=== PATIENT | female | born 1980 | race Hispanic/Latino ===

== ENCOUNTER 2017-05-26 11:16 | Emergency (ER) | payer SELFPAY ==
[2017-05-26 11:36] VITALS: TEMP 97.8
--- NOTE | 2017-05-26 12:26 | RAD ---
Study: Frontal and Lateral Views of the Chest. Indication: right breast pain and diaphoresis 4 days Comparison: April 02, 2014. IMPRESSION: Heart size normal. Lungs clear. No acute osseous abnormality. Electronically signed by: Yazan Chris MD 05/26/2017 12:25 PM CDT
[2017-05-26] MEDS ORDERED: cefTRIAXone SODIUM 1 GM VIAL IM ONE (12:41)
--- NOTE | 2017-05-26 12:44 | ED.PDOC ---
History of Present Illness - General Chief Complaint: General Stated Complaint: left breast pain Time Seen by Provider: 05/26/17 11:23 Source: patient Exam Limitations: no limitations - History of Present Illness Initial Comments: the patient is a 36-year-old female presenting to the emergency room secondary to 4 days of symptoms. Her primary symptom is pain in her left breast behind the nipple. No nipple discharge. No shortness of breath. No syncope or near syncope. She does report intermittent diaphoresis for the last few days. No cough. She has had some mild nausea when she got diaphoretic. No new medications. She has breast-fed in the past but is not currently breast- feeding. Severity: moderate Improving Factors: nothing Worsening Factors: nothing Associated Symptoms: chest pain, diaphoresis, loss of appetite Allergies/Adverse Reactions: Allergies NO KNOWN ALLERGY Allergy (Verified 05/26/17 11:36) Home Medications: Ambulatory Orders Metformin HCl 500 mg PO BID 01/29/13 Glyburide 2.5 mg PO DAILY 01/31/15 Lisinopril 5 mg PO DAILY 01/31/15 Meclizine HCl 25 mg PO Q6HR #60 tab 02/29/16 Cephalexin Monohydrate [Keflex] 500 mg PO Q8H #30 cap 05/26/17 Sulfa/Trimeth 800/160 (Ds) Tab [Bactrim DS Tab] 1 ea PO BID #20 tab 05/26/17 Review of Systems - Review of Systems Constitutional: States: diaphoresis, malaise EENTM: States: no symptoms reported Respiratory: States: no symptoms reported Cardiology: States: chest pain Gastrointestinal/Abdominal: States: no symptoms reported Genitourinary: States: no symptoms reported Musculoskeletal: States: no symptoms reported Skin: States: no symptoms reported Neurological: States: no symptoms reported Endocrine: States: no symptoms reported All other Systems: No Change from Baseline Past Medical History (General) - Patient Medical History Hx Seizures: No Hx Stroke: No Hx Dementia: No Hx Asthma: No Hx of COPD: No Hx Cardiac Disorders: No Hx Congestive Heart Failure: No Hx Pacemaker: No Hx Hypertension: Yes Hx Thyroid Disease: No Hx Diabetes: Yes - just diagnosed in December Hx Gastroesophageal Reflux: Yes Hx Renal Disease: No Hx Cancer: No Hx of HIV: No Hx Hepatitis C: No Hx MRSA: No Surgical History: cholecystectomy, Hysterectomy - Vaccination History Hx Tetanus, Diphtheria Vaccination: No Hx Influenza Vaccination: No Hx Pneumococcal Vaccination: No - Social History Hx Tobacco Use: No Hx Alcohol Use: Yes - occ Hx Substance Use: No Hx Substance Use Treatment: No Hx Depression: No - Activities of Daily Living Hospice Agency (if applicable):: None - Female History Patient is a Female of Child Bearing Age (10 -59 yrs old): No Patient : No Family Medical History - Family History Mother Family History: No Known Living Status: Still Living Hx Family Hypertension: Yes Hx Family Diabetes: Yes Physical Exam - Physical Exam General Appearance: Alert, Comfortable, No apparent distress Eye Exam: bilateral normal Ears, Nose, Throat: hearing grossly normal, normal ENT inspection, normal pharynx Neck: non-tender, full range of motion, supple Respiratory: lungs clear, normal breath sounds, no respiratory distress, no accessory muscle use Cardiovascular/Chest: normal peripheral pulses, regular rate, rhythm, no edema Peripheral Pulses: radial,right: 2+, radial,left: 2+, dorsalis pedis,right: 2+, dorsalis pedis,left: 2+ Gastrointestinal/Abdominal: soft Rectal Exam: deferred Back Exam: normal inspection, no CVA tenderness Extremity: normal range of motion, non-tender, normal inspection, no pedal edema , normal capillary refill 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 Breast exam shows tenderness to palpation of the tissue behind the left areola. There is no tenting of the skin. There is no abnormal discharge from the nipple. I do not feel significant lymphadenopathy in the left axilla. There is an area of inflammation behind the left areola. It is significantly tender to palpation. Clinically this in its time frame is consistent with a mastitis. The patient will be placed on Bactrim and Keflex for now. If she is not improving over the next week then additional imaging in the form of an ultrasound and possibly blood work may be needed. Her mother was recently diagnosed with breast cancer and the patient is concerned for that. For now the clinical history is more consistent with an acute mastitis. She does need to follow up with her primary care doctor next week. - Results/Orders Results/Orders: hest x-ray appears clear Departure - Departure Clinical Impression: Mastitis in female Disposition: Discharge to Home or Self Care Condition: Fair Departure Forms: ED Discharge - Pt. Copy, Patient Portal Self Enrollment Instructions: DI for Mastitis Diet: regular diet Activity: increase activity as tolerated Referrals: Maureen Shaw NP [Primary Care Provider] - 1-5 Days Prescriptions: Cephalexin Monohydrate [Keflex] 500 mg PO Q8H #30 cap Sulfa/Trimeth 800/160 (Ds) Tab [Bactrim DS Tab] 1 ea PO BID #20 tab Home Medications: Ambulatory Orders Metformin HCl 500 mg PO BID 01/29/13 Glyburide 2.5 mg PO DAILY 01/31/15 Lisinopril 5 mg PO DAILY 01/31/15 Meclizine HCl 25 mg PO Q6HR #60 tab 02/29/16 Cephalexin Monohydrate [Keflex] 500 mg PO Q8H #30 cap 05/26/17 Sulfa/Trimeth 800/160 (Ds) Tab [Bactrim DS Tab] 1 ea PO BID #20 tab 05/26/17 Additional Instructions: the patient is a 36-year-old female presented to emergency room secondary to left breast pain. Breast exam shows tenderness to palpation of the tissue behind the left areola. There is no tenting of the skin. There is no abnormal discharge from the nipple. I do not feel significant lymphadenopathy in the left axilla. There is an area of inflammation behind the left areola. It is significantly tender to palpation. Clinically this in its time frame is consistent with a mastitis. The patient will be placed on Bactrim and Keflex for now. If she is not improving over the next week then additional imaging in the form of an ultrasound and possibly blood work may be needed. Her mother was recently diagnosed with breast cancer and the patient is concerned for that. For now the clinical history is more consistent with an acute mastitis. She does need to follow up with her primary care doctor next week.
[2017-05-26] MEDS ORDERED: LIDOCAINE 1% 10 ML VIAL INJ ONE (12:53)
[2017-05-26 13:31] VITALS: BP 120/81; O2SAT 95
== END 2017-05-26 13:25 | disposition home or self-care (01) ==
LOC: ER 11:16
DX: N61.0 Mastitis without abscess (principal); I10 Essential (primary) hypertension; E11.9 Type 2 diabetes mellitus without complications; K21.9 Gastro-esophageal reflux disease without esophagitis; Z79.899 Other long term (current) drug therapy
CPT/HCPCS: 71020; J0696

== ENCOUNTER 2018-04-27 10:42 | Emergency (ER) | payer SELFPAY ==
[2018-04-27 10:53] VITALS: TEMP 99
--- NOTE | 2018-04-27 11:15 | ED.PDOC ---
History of Present Illness - General Chief Complaint: Diabetic Complaint Stated Complaint: Elevated blood sugar Time Seen by Provider: 04/27/18 10:56 Source: patient, RN notes reviewed, Vital Signs reviewed Exam Limitations: no limitations - History of Present Illness Initial Comments: Says she has been feeling poorly for quite some time. Nothing specific. She took her blood sugar today & the meter read high. She has been off her metformin for 4 months. She had a headache & vomiting 4 days ago but that has resolved. She reports some mild SP cramping but no dysuria. She says her back is sore. Timing/Duration: unsure Severity: mild Improving Factors: nothing Worsening Factors: nothing Associated Symptoms: other - malaise Allergies/Adverse Reactions: Allergies NO KNOWN ALLERGY Allergy (Verified 04/27/18 10:54) Home Medications: Ambulatory Orders Metformin HCl 500 mg PO BID 01/29/13 Glyburide 2.5 mg PO DAILY 01/31/15 Lisinopril 5 mg PO DAILY 01/31/15 Meclizine HCl 25 mg PO Q6HR #60 tab 02/29/16 Cephalexin Monohydrate [Keflex] 500 mg PO Q8H #30 cap 05/26/17 Sulfa/Trimeth 800/160 (Ds) Tab [Bactrim DS Tab] 1 ea PO BID #20 tab 05/26/17 Lisinopril 10 mg PO DAILY #30 tab 04/27/18 Metformin HCl 500 mg PO BID #60 tab 04/27/18 Review of Systems - Review of Systems Constitutional: States: malaise EENTM: States: no symptoms reported Respiratory: States: no symptoms reported Cardiology: States: no symptoms reported Gastrointestinal/Abdominal: States: see HPI Genitourinary: States: see HPI Musculoskeletal: States: see HPI, back pain Skin: States: no symptoms reported Neurological: States: see HPI Endocrine: Denies: increased hunger, increased thirst, increased urine, unexplained weight loss Past Medical History (General) - Patient Medical History Hx Seizures: No Hx Stroke: No Hx Dementia: No Hx Asthma: No Hx of COPD: No Hx Cardiac Disorders: No Hx Congestive Heart Failure: No Hx Pacemaker: No Hx Hypertension: Yes Hx Thyroid Disease: No Hx Diabetes: Yes Hx Gastroesophageal Reflux: Yes Hx Renal Disease: No Hx Cancer: No Hx of HIV: No Hx Hepatitis C: No Hx MRSA: No Surgical History: cholecystectomy, other - hysterectomy - Vaccination History Hx Tetanus, Diphtheria Vaccination: No Hx Influenza Vaccination: No Hx Pneumococcal Vaccination: No - Social History Hx Tobacco Use: No Hx Alcohol Use: Yes - occ Hx Substance Use: No Hx Substance Use Treatment: No Hx Depression: No - Female History Patient : No Family Medical History - Family History Mother Family History: No Known Living Status: Still Living Hx Family Hypertension: Yes Hx Family Diabetes: Yes Physical Exam - Physical Exam General Appearance: Alert, Comfortable, No apparent distress Ears, Nose, Throat: hearing grossly normal Neck: full range of motion, supple, normal inspection Respiratory: no respiratory distress, no accessory muscle use Cardiovascular/Chest: no edema, no JVD Gastrointestinal/Abdominal: non tender, soft, no organomegaly Back Exam: no vertebral tenderness, other - FROM Extremity: normal range of motion, normal inspection, normal capillary refill Neurologic: no motor/sensory deficits, alert, normal mood/affect, oriented x 3 Skin Exam: normal color, warm/dry Progress - Progress Progress: 04/27/18 11:47 Instructed on lab findings & that it is imperative that she get f/u with a PCP. - Results/Orders Results/Orders: Proteinuria, hematuria, glucose 289 Departure - Departure Clinical Impression: Hyperglycemia, Poorly controlled diabetes mellitus Diabetes mellitus Qualifiers: Diabetes mellitus type: type 2 Diabetes mellitus complication status: with kidney complications Diabetes mellitus complication detail: with nephropathy Diabetes mellitus [facility] insulin use: without moth exterminator use Qualified Code(s) : E11.21 - Type 2 diabetes mellitus with diabetic nephropathy Proteinuria Qualifiers: Proteinuria type: unspecified Qualified Code(s): R80.9 - Proteinuria, unspecified Time of Disposition: 11:52 Disposition: Discharge to Home or Self Care Condition: Good Departure Forms: ED Discharge - Pt. Copy, Patient Portal Self Enrollment Instructions: DI for Diabetes Type 2 Diet: diabetic diet Referrals: Maureen Shaw NP [Primary Care Provider] - 1-2 Weeks Prescriptions: Lisinopril 10 mg PO DAILY #30 tab Metformin HCl 500 mg PO BID #60 tab Home Medications: Ambulatory Orders Metformin HCl 500 mg PO BID 01/29/13 Glyburide 2.5 mg PO DAILY 01/31/15 Lisinopril 5 mg PO DAILY 01/31/15 Meclizine HCl 25 mg PO Q6HR #60 tab 02/29/16 Cephalexin Monohydrate [Keflex] 500 mg PO Q8H #30 cap 05/26/17 Sulfa/Trimeth 800/160 (Ds) Tab [Bactrim DS Tab] 1 ea PO BID #20 tab 05/26/17 Lisinopril 10 mg PO DAILY #30 tab 04/27/18 Metformin HCl 500 mg PO BID #60 tab 04/27/18
[2018-04-27 12:14] VITALS: BP 144/96; O2SAT 98
== END 2018-04-27 12:00 | disposition home or self-care (01) ==
LOC: ER 10:42
DX: E11.65 Type 2 diabetes mellitus with hyperglycemia (principal); E11.21 Type 2 diabetes mellitus with diabetic nephropathy; R80.9 Proteinuria, unspecified; I10 Essential (primary) hypertension; K21.9 Gastro-esophageal reflux disease without esophagitis; Z79.84 Long term (current) use of oral hypoglycemic drugs

== ENCOUNTER 2019-02-09 07:06 | Emergency (ER) | payer SELFPAY ==
[2019-02-09 07:16] VITALS: TEMP 98.9; O2SAT 98
--- NOTE | 2019-02-09 07:45 | ED.PDOC ---
History of Present Illness - General Chief Complaint: ENT Problem Stated Complaint: L ear discomfort Time Seen by Provider: 02/09/19 07:27 Source: patient, RN notes reviewed, Vital Signs reviewed Exam Limitations: no limitations - History of Present Illness Initial Comments: c/o left ear pain x 2 days. No drainage or fever but has noted pain & swelling to the periauricular area. Timing/Duration: gradual Severity: moderate EENT Location: ear (L) Prearrival Treatment: over the counter meds Improving Factors: nothing Worsening Factors: nothing Associated Symptoms: change in hearing Allergies/Adverse Reactions: Allergies NO KNOWN ALLERGY Allergy (Verified 04/27/18 10:54) Home Medications: Ambulatory Orders Metformin HCl 500 mg PO BID 01/29/13 Glyburide 2.5 mg PO BID 01/31/15 Lisinopril 10 mg PO DAILY #30 tab 04/27/18 Brenton/Poly/Hc Otic Susp [Cortisporin Otic Susp] 4 drop LEFT_EAR Q6H #10 days 02/09/19 Tramadol HCl 100 mg PO Q8H PRN #18 tab 02/09/19 Review of Systems - Review of Systems Constitutional: States: see HPI. Denies: fever, weakness EENTM: States: see HPI Respiratory: States: no symptoms reported Cardiology: States: no symptoms reported Gastrointestinal/Abdominal: States: no symptoms reported Skin: States: no symptoms reported Neurological: States: no symptoms reported Past Medical History (General) - Patient Medical History Hx Seizures: No Hx Stroke: No Hx Dementia: No Hx Asthma: No Hx of COPD: No Hx Cardiac Disorders: No Hx Congestive Heart Failure: No Hx Pacemaker: No Hx Hypertension: Yes Hx Thyroid Disease: No Hx Diabetes: Yes Hx Gastroesophageal Reflux: Yes Hx Renal Disease: No Hx Cancer: No Hx of HIV: No Hx Hepatitis C: No Hx MRSA: No Surgical History: other - Vaccination History Hx Tetanus, Diphtheria Vaccination: No Hx Influenza Vaccination: No Hx Pneumococcal Vaccination: No - Social History Hx Tobacco Use: No Hx Alcohol Use: No Hx Substance Use: No Hx Substance Use Treatment: No Hx Depression: No - Female History Patient : No Family Medical History - Family History Mother Family History: No Known Living Status: Still Living Hx Family Hypertension: Yes Hx Family Diabetes: Yes Physical Exam - Physical Exam General Appearance: Alert, Comfortable, No apparent distress Eye Exam: bilateral normal Ear Exam: right ear: auricle normal, canal normal, TM normal, left ear: other - discharge to EAC; pain with auricular manipulation; pain to percussion of mastoid Nasal Exam: normal inspection Neck: full range of motion, supple, other - mild infrauricular swelling Cardiovascular/Respiratory: no respiratory distress Neurologic: sign writer hand II-XII nml as tested, no motor/sensory deficits, alert, normal mood/affect, oriented x 3 Skin Exam: normal color, warm/dry Progress - Progress Progress: 02/09/19 09:04 Improved. Has a PCP to f/u with. Has chronic recurring sinus symptoms but none today. As such will defer oral antibiotics. - Results/Orders Results/Orders: WBC 6 Glu 209 - EKG/XRAY/CT CT Ordered: Yes - no acute mastoiditis; chronic sinusitis Departure - Departure Clinical Impression: Hyperglycemia Otitis externa Qualifiers: Otitis externa type: unspecified type Chronicity: acute Laterality: left Qualified Code(s): H60.502 - Unspecified acute noninfective otitis externa, left ear Sinusitis, chronic Qualifiers: Sinusitis location: unspecified location Qualified Code(s): J32.9 - Chronic sinusitis, unspecified Time of Disposition: 09:05 Disposition: Discharge to Home or Self Care Departure Forms: ED Discharge - Pt. Copy, Patient Portal Self Enrollment Instructions: DI for Ear Pain-Adult Referrals: Maureen Shaw NP [Primary Care Provider] - 02/14/19 Prescriptions: Brenton/Poly/Hc Otic Susp [Cortisporin Otic Susp] 4 drop LEFT_EAR Q6H #10 days Tramadol HCl 100 mg PO Q8H PRN #18 tab PRN Reason: Moderate Pain Home Medications: Ambulatory Orders Metformin HCl 500 mg PO BID 01/29/13 Glyburide 2.5 mg PO BID 01/31/15 Lisinopril 10 mg PO DAILY #30 tab 04/27/18 Brenton/Poly/Hc Otic Susp [Cortisporin Otic Susp] 4 drop LEFT_EAR Q6H #10 days 02/09/19 Tramadol HCl 100 mg PO Q8H PRN #18 tab 02/09/19
[2019-02-09] MEDS: SODIUM CHLORIDE 0.9% 1000ML 500 ML IVS ONE (07:51)
[2019-02-09] MEDS: HYDROcodone 10MG/APAP 325MG 1 EA TAB PO ONE (07:51)
--- NOTE | 2019-02-09 08:48 | CT ---
EXAM DESCRIPTION: Sinuses CLINICAL HISTORY: possible mastoiditis COMPARISON: None. TECHNIQUE: Noncontrast transaxial CT images of the maxillofacial region are obtained with coronal and sagittal reconstructed images. This exam was performed according to our departmental dose-optimization program, which includes automated exposure control, adjustment of the mA and/or kV according to patient size and/or use of iterative reconstruction technique . FINDINGS: Mild circumferential mucosal thickening of the right frontal sinus is seen. Opacification and obstruction of the right frontoethmoid recess is seen. The left frontal sinus is unremarkable. Mild to moderate mucosal thickening of the ethmoid air cells is seen right greater than left. Mild mucosal thickening in the maxillary sinus bilaterally seen with partial air-fluid level in the posterior right maxillary sinus. Sphenoid sinuses are unremarkable. Tiny fluid attenuation is seen in the inferior bilateral mastoid air cells. The mastoid air cells are otherwise unremarkable. 4 mm rightward deviation of the mid bony nasal septum is seen. No narendra bullosa is seen. Soft tissue thickening of the middle and inferior turbinates is seen. Caries is seen on the right posterior maxillary molar tooth number 1. Visualized skull base is unremarkable. The orbits and ocular globes are unremarkable. Small less than 1 cm lymph nodes are seen in the parotid glands bilaterally. Submandibular glands are unremarkable. IMPRESSION: Mild subacute to chronic right frontal, right greater than left ethmoid, and right greater than left maxillary sinuses. Probable air-fluid level in the right maxillary sinus suggests acute sinusitis. Minimal bilateral mastoid effusions are seen without bone destructive changes. Right posterior maxillary molar caries. Electronically signed by: Richie Sánchez MD 02/09/2019 8:46 AM CDT
[2019-02-09 09:18] VITALS: BP 114/71
== END 2019-02-09 09:18 | disposition home or self-care (01) ==
LOC: ER 07:06
DX: H60.502 Unspecified acute noninfective otitis externa, left ear (principal); E11.65 Type 2 diabetes mellitus with hyperglycemia; J32.9 Chronic sinusitis, unspecified; I10 Essential (primary) hypertension; K21.9 Gastro-esophageal reflux disease without esophagitis; Z79.84 Long term (current) use of oral hypoglycemic drugs; Z79.899 Other long term (current) drug therapy
CPT/HCPCS: 36415; 70486; 80053; 85025; J7030

== ENCOUNTER 2020-05-06 18:35 | Emergency (ER) | payer SELFPAY | END 2020-05-06 19:00 | disposition left against medical advice (07) | LOC: ER 18:35 | DX: R10.30 Lower abdominal pain, unspecified (principal); R11.0 Nausea; Z53.29 Procedure and treatment not carried out because of patient's decision for other reasons ==

== ENCOUNTER 2020-05-07 12:23 | Inpatient (IN) | payer SELFPAY ==
[2020-05-07] MEDS ORDERED: HYDROcodone 5MG/APAP 325MG 1 EA TAB PO ONE (12:54)
--- NOTE | 2020-05-07 14:32 | CT ---
EXAM DESCRIPTION: CT ABDOMEN AND PELVIS WITH CONTRAST CLINICAL HISTORY: flank pain COMPARISON: Previous CT abdomen and pelvis October 05, 2016 TECHNIQUE: CT of the abdomen and pelvis are performed during IV bolus administration of routine adult dose of nonionic iodinated IV contrast. No oral contrast. FINDINGS: In the lower chest, the lung bases are clear. Heart size is normal. Dense breast tissue appears symmetrical. CT abdomen Low density liver consistent with diffuse hepatic steatosis. Gallbladder surgically absent. Small right adrenal adenoma 1.1 cm. Otherwise the liver, spleen, pancreas, left adrenal gland, stomach and kidneys are normal in appearance. No inflammation around the pancreas. No renal stones or hydronephrosis. No bowel dilatation to suggest obstruction. No free air or free fluid. Inflammatory changes are seen in the region of the mid descending colon centered around a large diverticulum. Findings are most consistent with acute diverticulitis. Tiny gas bubble posterior to the diverticulum is consistent with focal perforation. No drainable fluid collection to suggest an abscess. Thickening of the lateral conal fascia is present with strandy increased density in the pericolonic fat. Thickening of the wall the colon is seen with low density consistent with edema. No enhancing mass to suggest an underlying malignancy. CT pelvis Appendix appears normal. No inflammation around the cecum or terminal ileum or sigmoid colon. Bladder and distal ureters are negative for stones. Normal enhancement of pelvic vessels. No inguinal or lower pelvic adenopathy. Uterus is not seen, evidently surgically absent. No ovarian enlargement. Bone window images are negative for fracture or lytic lesion. Coronal and sagittal reformatted images confirm the findings. I discussed the results over the phone with Dr. Macias in the emergency department at [facility] at 2:29 PM on 05/07/2020. IMPRESSION: Findings consistent with acute diverticulitis with focal perforation involving the mid descending colon. See above. This exam was performed according to our departmental dose-optimization program, which includes automated exposure control, adjustment of the mA and/or kV according to patient size and/or use of iterative reconstruction technique. Total DLP equals 808.06 mGycm. Electronically signed by: Hermann Morgan MD 05/07/2020 2:30 PM CDT
--- NOTE | 2020-05-07 14:39 | ED.PDOC ---
History of Present Illness - General Chief Complaint: Abdominal Pain Time Seen by Provider: 05/07/20 12:51 Information Source: patient, RN notes reviewed Past Medical History (General) - Patient Medical History Hx Seizures: No Hx Stroke: No Hx Dementia: No Hx Asthma: No Hx of COPD: No Hx Cardiac Disorders: No Hx Congestive Heart Failure: No Hx Pacemaker: No Hx Hypertension: Yes Hx Thyroid Disease: No Hx Diabetes: Yes Hx Gastroesophageal Reflux: Yes Hx Renal Disease: No Hx Cancer: No Hx of HIV: No Hx Hepatitis C: No Hx MRSA: No Surgical History: cholecystectomy, other - Vaccination History Hx Tetanus, Diphtheria Vaccination: No Hx Influenza Vaccination: No Hx Pneumococcal Vaccination: No - Social History Hx Tobacco Use: No Hx Alcohol Use: No Hx Substance Use: No Hx Substance Use Treatment: No Hx Depression: No - Female History Patient : No Family Medical History - Family History Mother Family History: No Known Living Status: Still Living Hx Family Hypertension: Yes Hx Family Diabetes: Yes Departure - Departure Disposition: Admit Patient Condition: Good Departure Forms: ED Discharge - Pt. Copy, Patient Portal Self Enrollment Instructions: DI for Abdominal Pain-Adult Referrals: Maureen Shaw NP [Primary Care Provider] - 1-2 Weeks Home Medications: Ambulatory Orders Metformin HCl 500 mg PO BID 01/29/13 Glyburide 2.5 mg PO BID 01/31/15 Lisinopril 10 mg PO DAILY #30 tab 04/27/18 Brenton/Poly/Hc Otic Susp [Cortisporin Otic Susp] 4 drop LEFT_EAR Q6H #10 days 02/09/19 Tramadol HCl 100 mg PO Q8H PRN #18 tab 02/09/19
[2020-05-07] MEDS ORDERED: SODIUM CHLORIDE 0.9% (FLUSH) 10 ML SYG IV PRN (14:57)
[2020-05-07] MEDS ORDERED: GLUCAGON INJ 1 MG VIAL SUBCU PRN (15:00)
[2020-05-07] MEDS ORDERED: DEXTROSE 50% 25 GM/50 ML SYG IV PRN (15:00)
[2020-05-07] MEDS ORDERED: PANTOPRAZOLE SODIUM IV 40 MG VIAL IV ONE (15:04)
[2020-05-07] MEDS ORDERED: metroNIDAZOLE IV PREMIX 500MG 500 MG in PREMIX BAG 1 BAG IVPB SCH ×2 (15:30→22:35)
--- NOTE | 2020-05-07 15:45 | HP ---
SUPERVISING PHYSICIAN: Donis Barclay M.D. CHIEF COMPLAINT: Left sided abdominal pain. HISTORY OF PRESENT ILLNESS: Ms. Phillip is a 39 year-old female that presented initially yesterday through the Emergency Room for left sided pain that started around Tuesday previously. The Emergency Room apparently was fairly busy and she opted to not be seen and go to a walk-in clinic. She was seen in walk-in clinic and was treated for a possible kidney stone, bladder infection and started on ciprofloxacin and given a pain medicine injection. The patient did not get her ciprofloxacin started last night. The pain continued to worsen today that she associates with some mild nausea and rating the pain 6/10 that is primarily on the left upper and lower quadrants. She denies any changes in bowel habits. No bloody stools. No diarrhea. No significant constipation. CT in the Emergency Room of the abdomen and pelvis with contrast showed findings consistent with acute diverticulitis with focal perforation involving the mid descending colon. Dr. Sprague was consulted in the Emergency Room and recommended the patient be admitted for further treatment and evaluation. Her labs showed that she had a mild leukocytosis of 12,000 with an early left shift. Chemistries were fairly unremarkable, except for a slightly elevated blood sugar at 193. Liver functions all being within normal limits as well as amylase and lipase. She has a significant history including hypertension and diabetes. She is now going to be admitted for treatment of diverticulitis acute with perforation. She was admitted in stable condition. PAST MEDICAL HISTORY: 1. Diabetes mellitus type 2 on oral therapy. 2. Hypertension. PAST SURGICAL HISTORY: 1. Partial hysterectomy. 2. Cholecystectomy in 2007. 3. Multiple lymph node excisions in the inguinal area in 2007 due to chronic infection. HOME MEDICATIONS: Awaiting updated list of medications and verification in the electronic medical records. ALLERGIES: NO KNOWN DRUG ALLERGIES. FAMILY HISTORY: Significant for breast cancer in her mom who is still living. Father at age 52 secondary to a brain hemorrhage. SOCIAL HISTORY: The patient is . She does live in [place]. She works at [employer]. She denies any alcohol or tobacco usage. REVIEW OF SYSTEMS: CONSTITUTIONAL: Denies any actual fevers, chills, general malaise or unexplained weight loss. HEENT: She does have a headache, but denies any vision changes, syncopal episodes, nasal congestion, sore throat or ear aches. RESPIRATORY: Denies any coughing, wheezing or shortness of breath. CARDIOVASCULAR: Denies any chest pain, palpitations or syncopal episodes. GASTROINTESTINAL: As noted in History of Present Illness, left sided abdominal pain. Denies any nausea, vomiting, diarrhea or constipation. GENITOURINARY: Denies any dysuria, hematuria, polyuria. MUSCULOSKELETAL: Denies any arthralgias or joint swelling. SKIN: Denies any unexplained changes, lesions, moles or rashes. NEUROLOGIC: Denies any syncopal episodes, ataxia, seizures or focal neuromotor deficits. HEMATOLOGIC: Denies any unexplained bleeding, bruising or transfusion reactions. PHYSICAL EXAMINATION: VITAL SIGNS: On admission showed temperature 97.2, pulse 105, blood pressure 136/86, respirations 20, satting 96% on room air. GENERAL: The patient does appear to feel unwell, but she does not look to be in any distress. She is well nourished. Looks well hydrated. HEENT: Tympanic membranes clear bilaterally. Oropharynx is pink, moist without any lesions. NECK: Supple, nontender with full range of motion. No jugular venous distention noted. CHEST: Clear to auscultation bilaterally without any rhonchi, wheezes or rales. HEART: Regular rate and rhythm without appreciable murmurs, gallops, or rubs. ABDOMEN: Soft. Tenderness noted on palpation to the left upper and lower quadrants. No peritoneal signs. No rebound tenderness. No guarding. BACK: No CVA or vertebral tenderness. RECTAL: Exam was deferred. EXTREMITIES: Without any cyanosis, clubbing or edema. NEUROLOGIC: Cranial nerves II-XII are grossly intact. Facial features are symmetrical. Extraocular movements are within normal limits. There is no notable nystagmus. She is alert and oriented times three. LABORATORY: White count 12,600, hemoglobin 12.7, hematocrit 36.7, platelet count 294,000. Differential shows a left shift. Chemistries showed normal electrolytes with creatinine of 0.64, glucose was 193, calcium 8.3, magnesium 2.1. Liver functions were all within normal limits as well as amylase and lipase. Urinalysis: Urine HCG was negative. Her urine showed greater than 300 protein with small amount of blood and RBCs on microscopic 5 to 10, rare bacteria, and trace of mucous. MICROBIOLOGY: No microbiology specimens were submitted. RADIOLOGY: CT of the abdomen per radiology interpretation showed findings consistent with acute diverticulitis with micro perforation of the mid descending colon. See that report for full details. ASSESSMENT: 1. Acute diverticulitis with local micro perforation with no mention of abscess. 2. Leukocytosis secondary to #1. 3. History of hypertension. 4. History of diabetes mellitus on oral therapy. PLAN: Ms. Phillip is going to be admitted for treatment of acute diverticulitis with perforation. Dr. Sprague has been consulted. She will be made NPO. She will be on IV fluids with D5 half normal saline with 10 of potassium after a liter bolus of saline. Will give her pain management with morphine and Toradol IV as needed. She will have Phenergan and Zofran as needed for any nausea. Will repeat labs in the morning as well as an x-ray of her abdomen and pelvis. Will also put her on antibiotics, including Flagyl and Levaquin. I anticipate her length of stay to be at least 2 to 3 days. She will be on sliding scale per insulin protocol. Until we can transition her to outpatient management will continue to monitor and treat as needed. #[id number] MTDD
[2020-05-07] MEDS: levoFLOXacin 500MG IV 500 MG in PREMIX BAG 1 BAG IVPB SCH (16:06)
[2020-05-07] MEDS: KCL 10 MEQ/D5 1/2NS 1,000 ML IVS PRN (16:06)
[2020-05-07] MEDS: ONDANSETRON INJ 4 MG/2 ML VIAL IV PRN ×2 (16:06→22:28)
[2020-05-07] MEDS: MORPHINE SULFATE INJ 10 MG/ML VIAL IV PRN ×3 (16:06→22:28)
[2020-05-07] MEDS: IV SET AND CAP CHANGE INJ INJ SCH (16:07)
[2020-05-07] MEDS ORDERED: LACTATED RINGERS 1,000 ML IVS ONE (16:08)
[2020-05-07] MEDS ORDERED: KETOROLAC TROMETHAMINE INJ 30 MG/ML VIAL IV ONE (16:09)
[2020-05-07] MEDS: POLYETHYLENE GLYCOL 3350 17 GM PCKT PO SCH (16:18)
--- NOTE | 2020-05-07 17:30 | CONS ---
REFERRING PHYSICIAN: Hospitalist Service. HISTORY OF PRESENT ILLNESS: The patient is a 39 year-old female who was seen in the Emergency Room today for abdominal pain. She was initially in the Emergency Room and left against medical advice without being seen yesterday, and was seen [facility] where she was said to have a urinary tract infection versus a kidney stone, and was started on Cipro. She denies fever or chills. Denies blood per rectum. Denies previous episode of like illness and denies change in her bowel habits. The patient was given antibiotics yesterday but did not start them. PAST MEDICAL HISTORY: 1. Cholecystectomy. 2. Hysterectomy. 3. Child times 3. 4. Excision of inguinal lymph nodes. 5. History of diabetes and hypertension, hypertension for approximately 5 years, and diabetes for a couple of years. CURRENT MEDICATIONS: At time of admission, included: 1. Metformin. 2. Glyburide. 3. Lisinopril. 4. Tramadol. FAMILY HISTORY: Positive for hypertension and diabetes. There is no evidence of tobacco or alcohol use or illegal drug use. REVIEW OF SYSTEMS: CONSTITUTIONAL: There is no history of hepatitis. No shortness of breath or chest pain. No nausea or vomiting. No headaches or visual changes. PHYSICAL EXAMINATION: GENERAL: The patient is awake, alert and cooperative, and in mild to moderate distress. She is currently afebrile and normotensive. HEENT: Reveals the sclera to be nonicteric. Mucous membranes are moist. NECK: Without adenopathy. BACK: Without CVA tenderness. CHEST: She has equal breath sounds bilaterally. CARDIOVASCULAR: Regular rate and rhythm without any appreciable murmurs, gallops, or rubs. ABDOMEN: Soft, There is tenderness in the left lower quadrant. There is no mass and no guarding. PELVIC AND RECTAL: Examinations are deferred. EXTREMITIES: There is no cyanosis, clubbing or edema. LABORATORY: White blood cell count 12,000 with 79% neutrophils. She has 294,000 platelets and her hemoglobin is 12.7. Chemistries reveal normal liver function test. Potassium is 3.6, creatinine 0.64, calcium 8.3, sodium 137. Amylase and lipase were within normal limits. CT scan of the abdomen revealed sigmoid diverticulitis with a tiny gas bubble posterior to the diverticulum consistent with perforation without drainable abscess. RECOMMENDATIONS: IV Levaquin and Flagyl until she has normalized her white blood cell count and then discharge on oral doses of the same for 2 to 3 weeks. There is consideration for post hospitalization colonoscopy. Will follow the patient with you. I would also recommended a clear liquid diet initially along with doses of MiraLAX twice a day. #[id number] MTDD
[2020-05-07] MEDS: INSULIN LISPRO 100 UNITS/ML PEN SUBCU SCH (18:33)
[2020-05-07] MEDS ORDERED: PROMETHAZINE HCL INJ 25 MG/ML VIAL ONE (19:19)
[2020-05-07] MEDS ORDERED: SODIUM CHLORIDE 0.9% 50ML 50 ML ONE (19:19)
[2020-05-07] MEDS ORDERED: PROMETHAZINE HCL INJ 12.5 MG in SODIUM CHLORIDE 0.9% 50ML 50 ML IVPB PRN (19:23)
[2020-05-08] MEDS: INSULIN LISPRO 100 UNITS/ML PEN SUBCU SCH ×4 (00:35→21:15)
[2020-05-08] MEDS ORDERED: metroNIDAZOLE IV PREMIX 500MG 100 ML IVPB ONE (01:47)
[2020-05-08] MEDS: KCL 10 MEQ/D5 1/2NS 1,000 ML IVS PRN ×2 (01:49→13:46)
[2020-05-08] MEDS: metroNIDAZOLE IV PREMIX 500MG 500 MG in PREMIX BAG 1 BAG IVPB SCH ×3 (01:49→18:27)
[2020-05-08] MEDS: ONDANSETRON INJ 4 MG/2 ML VIAL IV PRN (05:32)
[2020-05-08] MEDS: MORPHINE SULFATE INJ 10 MG/ML VIAL IV PRN ×5 (05:33→22:05)
[2020-05-08] MEDS: PANTOPRAZOLE SODIUM IV 40 MG VIAL IV SCH (06:58)
--- NOTE | 2020-05-08 07:16 | RAD ---
EXAM DESCRIPTION: Abdomen two views: CLINICAL HISTORY: Abdominal pain. COMPARISON STUDY: Supply Room Clerk view CT abdomen May 07, 2020. TECHNIQUE: AP supine and upright views of the abdomen are obtained. FINDINGS: The supine and upright abdominal radiographs show a non- obstructive bowel gas pattern. No pneumoperitoneum or mass effect. No evidence of abnormal air-fluid levels.No evidence of calculi or calcifications are noted. There is no evidence of hepatosplenomegaly. Evidence of prior cholecystectomy. Degenerative changes are seen in the lower lumbar spine predominantly involving the facet joints. No clinically significant osseous abnormalities noted. IMPRESSION: Nonspecific bowel gas pattern. Electronically signed by: Vandana Mart MD 05/08/2020 7:14 AM CDT
[2020-05-08] MEDS: POLYETHYLENE GLYCOL 3350 17 GM PCKT PO SCH ×2 (10:59→21:19)
--- NOTE | 2020-05-08 14:18 | PN ---
SUPERVISING PHYSICIAN: Donis Barclay M.D. DATE: 05/08/20 SUBJECTIVE: The patient is sitting up in bed. She has just had a clear liquid lunch, although she is not truly nauseated or has any emesis. She did say her stomach felt quite queasy. I told her to back off on the clear liquids if she had any issues. We discussed diverticulitis and concerns she had as a patient. She denies any chest pain or shortness of breath. No diarrhea or constipation. OBJECTIVE: VITAL SIGNS: Temperature 98.4, heart rate 70, blood pressure 107/64, respiratory rate 18, O2 saturation 97% on room air. RESPIRATORY: Essentially clear to auscultation bilaterally. CARDIAC: Regular rate and rhythm. GASTROINTESTINAL: Abdomen is soft, nondistended. It is diffusely tender. There is no rebound tenderness or guarding. Bowel sounds are positive. NEUROLOGIC: She is awake, alert and oriented times three. LABORATORY: CBC is basically unremarkable. Electrolytes are within normal limits, except her calcium is low at 7.8. Abdominal x-ray shows nonspecific bowel gas pattern. All other labs and films have been reviewed via the EMR. ASSESSMENT: 1. Acute diverticulitis with local micro perforation with no mention of abscess. 2. Leukocytosis secondary to #1. 3. History of hypertension. 4. History of diabetes mellitus on oral therapy. PLAN: We will continue present supportive care. Dr. Sprague has advanced her diet to clear liquids, although we may need to back off of those if she has any nausea or vomiting. Otherwise will defer recommendations per Dr. Sprague. She has had extensive teaching on diverticulitis and will continue with her antibiotics for now. Lovenox was started for DVT prophylaxis. I have ordered lab for in the morning. Will continue to monitor closely and follow as needed. #[id number] MTDD
[2020-05-08] MEDS: levoFLOXacin 500MG IV 500 MG in PREMIX BAG 1 BAG IVPB SCH (14:23)
[2020-05-08] MEDS ORDERED: KETOROLAC TROMETHAMINE INJ 30 MG/ML VIAL ONE (20:16)
[2020-05-08] MEDS ORDERED: KETOROLAC TROMETHAMINE INJ 30 MG/ML VIAL IV ONE (20:18)
[2020-05-08] MEDS: ENOXAPARIN SODIUM 40 MG/0.4 ML SYG SUBCU SCH (21:19)
[2020-05-09] MEDS: KCL 10 MEQ/D5 1/2NS 1,000 ML IVS PRN ×3 (00:25→23:35)
[2020-05-09] MEDS: metroNIDAZOLE IV PREMIX 500MG 500 MG in PREMIX BAG 1 BAG IVPB SCH ×3 (02:02→18:25)
[2020-05-09] MEDS: MORPHINE SULFATE INJ 10 MG/ML VIAL IV PRN ×2 (03:56→18:27)
[2020-05-09] MEDS: PANTOPRAZOLE SODIUM IV 40 MG VIAL IV SCH (06:12)
[2020-05-09] MEDS: POLYETHYLENE GLYCOL 3350 17 GM PCKT PO SCH ×3 (07:23→20:11)
[2020-05-09] MEDS: ACETAMINOPHEN 325 MG TAB PO PRN ×2 (07:52→21:47)
[2020-05-09] MEDS: INSULIN LISPRO 100 UNITS/ML PEN SUBCU SCH ×5 (07:55→21:10)
[2020-05-09] MEDS: levoFLOXacin 500MG IV 500 MG in PREMIX BAG 1 BAG IVPB SCH (16:03)
[2020-05-09] MEDS: ONDANSETRON INJ 4 MG/2 ML VIAL IV PRN (20:02)
[2020-05-09] MEDS: ENOXAPARIN SODIUM 40 MG/0.4 ML SYG SUBCU SCH ×2 (20:03→20:11)
[2020-05-10] MEDS: metroNIDAZOLE IV PREMIX 500MG 500 MG in PREMIX BAG 1 BAG IVPB SCH ×3 (01:00→18:02)
[2020-05-10] MEDS: PANTOPRAZOLE SODIUM IV 40 MG VIAL IV SCH (05:42)
[2020-05-10] MEDS: INSULIN LISPRO 100 UNITS/ML PEN SUBCU SCH ×4 (07:18→21:14)
--- NOTE | 2020-05-10 08:08 | PN ---
SUPERVISING PHYSICIAN: Donis Barclay M.D. DATE: 05/09/20 SUBJECTIVE: The patient is sitting up in bed. She has had no complaint's of nausea or vomiting. She states she has to be careful with what she eats . OBJECTIVE: VITAL SIGNS: Temperature 98.4, heart rate 66, blood pressure 119/72, respiratory rate 18, O2 saturation 97% on room air. RESPIRATORY: Essentially clear to auscultation bilaterally. CARDIAC: Regular rate and rhythm. GASTROINTESTINAL: Abdomen is soft, nondistended. non-tender. Bowel sounds are positive. NEUROLOGIC: She is awake, alert and oriented times three. LABORATORY: WBC 5,800, hemoglobin 10.2, hematocrit 29.6, electrolytes basically within normal limits except her calcium is low at 7.6. All other labs and films have been reviewed via the EMR. ASSESSMENT: 1. Acute diverticulitis with local micro perforation with no mention of abscess. 2. Leukocytosis secondary to #1. 3. History of hypertension. 4. History of diabetes mellitus on oral therapy. PLAN: We will continue present supportive care. GI issues will be addressed by Dr. Sprague. He will advance her diet after she has a bowel movement and will continue her Miralax and antibiotic therapy. I have ordered lab for in the morning and we will watch her clinically and advance her diet as she improves. We will continue to monitor closely and follow as needed. #[id number] [facility]
[2020-05-10] MEDS: POLYETHYLENE GLYCOL 3350 17 GM PCKT PO SCH ×2 (08:26→21:08)
[2020-05-10] MEDS ORDERED: KETOROLAC TROMETHAMINE INJ 30 MG/ML VIAL IV ONE (09:52)
[2020-05-10] MEDS: BIFIDOBACTERIUM INFANTIS 4 MG CAP PO SCH ×2 (13:00→21:08)
--- NOTE | 2020-05-10 14:29 | PN ---
SUPERVISING PHYSICIAN: Donis Barclay M.D. DATE: 05/10/20 SUBJECTIVE: The patient is sitting up in bed. She is eating her lunch. So far has tolerated it well. She said she is feeling less nauseous and there is less abdominal pain. OBJECTIVE: VITAL SIGNS: Temperature 97.6, heart rate 70, blood pressure 120/65, respiratory rate 16, O2 saturation 94% on room air. RESPIRATORY: Essentially clear to auscultation bilaterally. CARDIAC: Regular rate and rhythm. GASTROINTESTINAL: Abdomen is soft. It is nondistended. It is mildly but diffusely tender in the epigastric and left upper quadrant. Bowel sounds are positive. NEUROLOGICAL: She is awake, alert and oriented times three. LABORATORY: Blood sugars have run between 123 and 164. All other labs and films have been reviewed via the EMR. ASSESSMENT: 1. Acute diverticulitis with local micro perforation with no mention of abscess. 2. Leukocytosis secondary to #1. 3. History of hypertension. 4. History of diabetes mellitus on oral therapy. PLAN: We will continue present supportive care. GI issues will be addressed by Dr. Sprague. I have advanced her diet to a low residual as she has had multiple small bowel movements and will continue on her MiraLAX in the hospital as well as at home. Will continue her antibiotic therapy. She will need 3 total weeks of her Levaquin and Flagyl. I have ordered lab and an abdominal x-ray for in the morning. Will continue to monitor closely and follow as needed. #[id number] MTDD
[2020-05-10] MEDS: levoFLOXacin 500MG IV 500 MG in PREMIX BAG 1 BAG IVPB SCH (17:17)
[2020-05-10] MEDS: IV SET AND CAP CHANGE INJ INJ SCH (17:18)
[2020-05-10] MEDS ORDERED: levoFLOXacin 500 MG TAB PO SCH (20:30)
[2020-05-10] MEDS: metroNIDAZOLE 500 MG TAB PO SCH (21:07)
[2020-05-10] MEDS: ENOXAPARIN SODIUM 40 MG/0.4 ML SYG SUBCU SCH (21:11)
[2020-05-10] MEDS: ACETAMINOPHEN 325 MG TAB PO PRN (23:31)
[2020-05-11] MEDS: metroNIDAZOLE 500 MG TAB PO SCH (04:37)
[2020-05-11] MEDS: PANTOPRAZOLE SODIUM IV 40 MG VIAL IV SCH (05:41)
[2020-05-11] MEDS: INSULIN LISPRO 100 UNITS/ML PEN SUBCU SCH ×2 (08:51→12:09)
[2020-05-11] MEDS: POLYETHYLENE GLYCOL 3350 17 GM PCKT PO SCH (08:51)
[2020-05-11] MEDS: BIFIDOBACTERIUM INFANTIS 4 MG CAP PO SCH (08:59)
[2020-05-11 09:56] VITALS: BP 121/75; TEMP 98.6; O2SAT 96
--- NOTE | 2020-05-11 11:15 | RAD ---
EXAM: Abdomen Flat Upright CLINICAL INDICATION: Diverticulitis COMPARISON: 05/08/2020 FINDINGS: 2 views of the abdomen were obtained. There is a nonspecific bowel gas pattern with no radiographic evidence of bowel obstruction. There are no dilated loops of small bowel. There is no evidence of pneumoperitoneum or pathologic calcifications. IMPRESSION: No evidence of an acute intraabdominal process. Electronically signed by: Kurtis Villalobos MD 05/11/2020 11:13 AM CDT
[2020-05-11] MEDS ORDERED: SODIUM CHLORIDE 0.9% (FLUSH) 10 ML SYG IV SCH (21:00)
--- NOTE | 2020-05-15 14:00 | DS ---
SUPERVISING PHYSICIAN: Donis Barclay MD DISCHARGE DIAGNOSIS: 1. Acute diverticulitis with local microperforation with no mention of abscess. 2. Leukocytosis secondary to #1. 3. History of hypertension. 4. History of diabetes mellitus on oral therapy. HISTORY OF PRESENT ILLNESS: This is a 39 year-old female patient that presented to the Emergency Room for left sided pain that started the previous Tuesday. The Emergency Room was busy so she opted leave and go to a walk-in clinic. She was treated for a possible kidney stone, bladder infection and started on ciprofloxacin and given a pain medicine injection. The patient did not get her ciprofloxacin prescription and the pain continued to worsen with some mild nausea. She decided to come to the Emergency Room. There were no changes in bowel habits. No bloody stools. No diarrhea. No significant constipation. CT in the Emergency Room of the abdomen and pelvis with contrast showed findings consistent with acute diverticulitis with focal perforation involving the mid descending colon. Dr. Sprague was consulted by the Emergency Room doctor and he recommended the patient be admitted for further treatment and evaluation. She had a mild leukocytosis of 12,000 with an early left shift. Chemistries were fairly unremarkable except for a slightly elevated blood sugar at 193. Liver functions were within normal limits as well as amylase and lipase. She has a history of hypertension and diabetes. She was admitted to the hospital in stable condition. HOSPITAL COURSE: She was admitted to the hospital for treatment of acute diverticulitis with perforation. Dr. Sprague was consulted. She was made NPO and put on bowel rest as well as IV fluids. She was given pain management with morphine and Toradol. She had Phenergan and Zofran as needed for any nausea. She was placed on antibiotics with Flagyl and Levaquin. She was also started on sliding scale protocol. She somewhat improved over the next 24 to 48 hours and her diet was slowly advanced. She did have one or two bouts of nausea with the clear liquids, but her labs were followed. IV antibiotics were continued. We did teaching for low residual diet for diverticulitis. Her pain slowly but progressively improved. She was put on MiraLAX and today she is tolerating her low residual diet. We switched her to oral antibiotics. She will be discharged home in stable condition with close followup. LABORATORY: Her WBCs started at 12,600 and stabilized at 8,000. Hemoglobin and hematocrit were stable at 12.2 and 34.6. Initially, she had a left shift on her differential and that normalized. Her blood sugars ran between 105 and 201 with the majority in the mid-100s. Electrolytes were basically within normal limits except calcium was slightly low at 8.3 and went down as low as 7.6 and is now 8.6. Urinalysis showed trace of lysed urine blood, trace of urine leukocyte esterase and 3 to 5 urine WBCs. RADIOLOGY: Her followup abdominal x-ray showed no evidence of acute intraabdominal process. DISCHARGE PLAN: The patient will be discharged home in stable condition. She is to increase her activity as tolerated and she has been given instructions for a low residual diet. She is to followup with TONEY Lester, her primary care provider, within one to two weeks. In addition to her routine medications as well as her low residual diet, she is to take 14 days of Flagyl and 14 days of Levaquin as well as taking MiraLAX daily. She is to return to the hospital or followup with Dr. Sprague or Maureen Shaw for any problems or complications. DISCHARGE MEDICATIONS: 1. Metformin. 2. Glyburide. 3. Lisinopril. 4. Cortisporin otic. 5. Tramadol. 6. Align. 7. Metronidazole. 8. Levaquin. 9. MiraLAX. #[id number] MTDD
== END 2020-05-11 14:15 | disposition home or self-care (01) | DRG 392 ==
LOC: ER 12:23 → OBSVTOIN 15:43 → MS 15:43
PROVIDERS: ADMIT Nurse Practitioner Family; ATTEND Nurse Practitioner Acute Care
PROC: BW211ZZ Computerized Tomography (CT Scan) of Abdomen and Pelvis using Low Osmolar Contrast (ICD-10-PCS; principal; 2020-05-07)
DX: K57.20 Diverticulitis of large intestine with perforation and abscess without bleeding (principal); E11.65 Type 2 diabetes mellitus with hyperglycemia; R51 Headache; I10 Essential (primary) hypertension; Z79.84 Long term (current) use of oral hypoglycemic drugs; Z79.891 Long term (current) use of opiate analgesic; Z79.899 Other long term (current) drug therapy; K21.9 Gastro-esophageal reflux disease without esophagitis; Z90.49 Acquired absence of other specified parts of digestive tract

== ENCOUNTER 2020-05-28 08:10 | Emergency (ER) | payer SELFPAY ==
--- NOTE | 2020-05-28 08:31 | ED.PDOC ---
History of Present Illness - General Chief Complaint: GI Problem Stated Complaint: nausea/abdominal pain Time Seen by Provider: 05/28/20 08:17 - History of Present Illness Initial Comments: 39 y/o female with abdominal pain recently hospitalized with diverticulitis with perforation. She was in the hospital for a week and finished her antibiotic yesterday. She still has pain and poor appetite. only small BM in spite of taking miralax twice a day. She is not taking any narcotic pain med. Review of Systems - Review of Systems Constitutional: States: weakness EENTM: States: no symptoms reported Respiratory: States: no symptoms reported Cardiology: States: no symptoms reported Gastrointestinal/Abdominal: States: abdominal pain, constipation Genitourinary: States: no symptoms reported Musculoskeletal: States: no symptoms reported Skin: States: no symptoms reported Neurological: States: no symptoms reported Past Medical History (General) - Patient Medical History Hx Seizures: No Hx Stroke: No Hx Dementia: No Hx Asthma: No Hx of COPD: No Hx Cardiac Disorders: No Hx Congestive Heart Failure: No Hx Pacemaker: No Hx Hypertension: Yes Hx Thyroid Disease: No Hx Diabetes: Yes Hx Gastroesophageal Reflux: Yes Hx Renal Disease: No Hx Cancer: No Hx of HIV: No Hx Hepatitis C: No Hx MRSA: No - Vaccination History Hx Tetanus, Diphtheria Vaccination: No Hx Influenza Vaccination: No Hx Pneumococcal Vaccination: No - Social History Hx Tobacco Use: No Hx Alcohol Use: No Hx Substance Use: No Hx Substance Use Treatment: No Hx Depression: No Hx Physical Abuse: No Hx Emotional Abuse: No - Female History Patient : No Family Medical History - Family History Mother Family History: No Known Living Status: Still Living Hx Family Hypertension: Yes Hx Family Diabetes: Yes Physical Exam - Physical Exam General Appearance: Alert, No apparent distress Eyes, Ears, Nose, Throat Exam: PERRL/EOMI, normal ENT inspection Neck: full range of motion, supple, normal inspection Respiratory: chest non-tender, lungs clear, normal breath sounds, no respiratory distress, no accessory muscle use Cardiovascular/Chest: normal peripheral pulses, no edema, no gallop, no JVD Back Exam: normal inspection, no CVA tenderness, no vertebral tenderness Extremity: normal range of motion, other - gait normal Neurologic: no motor/sensory deficits, alert, normal mood/affect, oriented x 3 Skin Exam: normal color, warm/dry Departure - Departure Clinical Impression: Constipation Qualifiers: Constipation type: slow transit constipation Qualified Code(s): K59.01 - Slow transit constipation Time of Disposition: 10:14 Disposition: Discharge to Home or Self Care Departure Forms: ED Discharge - Pt. Copy, Patient Portal Self Enrollment Referrals: Maureen Shaw HEALTH INFORMATION MANAGEMENT DIRECTOR [Primary Care Provider] - 1-2 Weeks Home Medications: Ambulatory Orders Metformin HCl 500 mg PO BID 01/29/13 Glyburide 2.5 mg PO BID 01/31/15 Lisinopril 10 mg PO DAILY #30 tab 04/27/18 Brenton/Poly/Hc Otic Susp [Cortisporin Otic Susp] 4 drop LEFT_EAR Q6H #10 days 02/09/19 Tramadol HCl 100 mg PO Q8H PRN #18 tab 02/09/19 Bifidobacterium Infantis [Align] 4 mg PO BID cap 05/11/20 Polyethylene Glycol 3350 [Miralax] 17 gm PO DAILY 20 Days #20 pckt 05/11/20 levoFLOXacin [Levaquin] 500 mg PO DAILY #14 tab 05/11/20 metroNIDAZOLE [Flagyl] 500 mg PO Q8H #42 tab 05/11/20 Magnesium Citrate 300 ml PO ONCE #1 bttl 05/28/20
[2020-05-28] MEDS ORDERED: MORPHINE SULFATE INJ 10 MG/ML VIAL IV ONE (08:35)
[2020-05-28] MEDS ORDERED: SODIUM CHLORIDE 0.9% (FLUSH) 10 ML SYG IV ONE (08:37)
--- NOTE | 2020-05-28 10:08 | CT ---
EXAM DESCRIPTION: Abdomen/Pelvis w/Contrast CLINICAL HISTORY: 39 years Female, possible abscess TECHNIQUE: This exam was performed according to our departmental dose-optimization program, which includes automated exposure control, adjustment of the mA and/or kV according to patient size and/or use of iterative reconstruction technique. COMPARISON: May 07, 2020 FINDINGS: Visualized lung bases are grossly unremarkable. No suspicious hepatic lesion. No biliary dilatation. The portal vein is patent. Cholecystectomy. Indeterminate right adrenal nodule measuring 1.2 cm. The pancreas, spleen and left adrenal gland are unremarkable. Symmetric renal parenchymal enhancement. No hydronephrosis. No urolithiasis. Unremarkable bladder. Improved distal descending colon diverticulitis. No drainable fluid collection. No free air. No evidence of bowel obstruction. Large stool volume. Normal appendix. No adenopathy. No focal fluid collection. No free air. Normal caliber abdominal aorta. No acute or suspicious osseous abnormality. Scattered degenerative changes present. IMPRESSION: Improving uncomplicated distal descending colon diverticulitis. No drainable fluid collection or free air. Indeterminate right adrenal nodule measuring 1.[address] adrenal adenoma protocol for further evaluation. Electronically signed by: Anders Suazo MD 05/28/2020 10:06 AM CDT
[2020-05-28 10:26] VITALS: TEMP 98.2
[2020-05-28 10:28] VITALS: BP 127/75; O2SAT 96
== END 2020-05-28 10:29 | disposition home or self-care (01) ==
LOC: ER 08:10
DX: K59.01 Slow transit constipation (principal); K21.9 Gastro-esophageal reflux disease without esophagitis; E11.9 Type 2 diabetes mellitus without complications; I10 Essential (primary) hypertension; Z87.19 Personal history of other diseases of the digestive system; Z79.84 Long term (current) use of oral hypoglycemic drugs; Z79.899 Other long term (current) drug therapy
CPT/HCPCS: 36415; 74177; 80053; 81001; 85025; J2270

== ENCOUNTER 2020-11-17 16:39 | Emergency (ER) | payer SELFPAY ==
--- NOTE | 2020-11-17 16:57 | ED.PDOC ---
History of Present Illness - General Stated Complaint: Chest pain Time Seen by Provider: 11/17/20 16:57 Source: patient Exam Limitations: no limitations Additional Information: Patient works in a factory standing throughout the day. - History of Present Illness Initial Comments: Patient complains of Sharp pain In her left upper chest for the last 2 days. It occurs intermittently. It does radiate to the Left shoulder. Pain is currently 6/10. She denies shortness of breath. Has complained of some slight runny nose but no cough. No fever or chills. No Covid exposure. Patient says similar symptoms before for which she has not sought medical attention. She does not have any history of heart or lung disease. Timing/Duration: 24 hours Improving Factors: nothing Worsening Factors: nothing Associated Symptoms: nausea/vomiting Allergies/Adverse Reactions: Allergies NO KNOWN ALLERGY Allergy (Verified 11/17/20 17:24) Home Medications: Ambulatory Orders Metformin HCl 500 mg PO BID 01/29/13 Glyburide 2.5 mg PO BID 01/31/15 Lisinopril 10 mg PO DAILY #30 tab 04/27/18 [place]/Poly/Hc Otic Susp [Cortisporin Otic Susp] 4 drop LEFT_EAR Q6H #10 days 02/09/19 Tramadol HCl 100 mg PO Q8H PRN #18 tab 02/09/19 Bifidobacterium Infantis [Align] 4 mg PO BID cap 05/11/20 Polyethylene Glycol 3350 [Miralax] 17 gm PO DAILY 20 Days #20 pckt 05/11/20 levoFLOXacin [Levaquin] 500 mg PO DAILY #14 tab 05/11/20 metroNIDAZOLE [Flagyl] 500 mg PO Q8H #42 tab 05/11/20 Magnesium Citrate 300 ml PO ONCE #1 bttl 05/28/20 Ibuprofen 600 mg PO QID PRN 7 Days #30 tab 11/17/20 Review of Systems - Review of Systems Constitutional: States: no symptoms reported EENTM: States: nose congestion Respiratory: States: no symptoms reported Cardiology: States: see HPI Gastrointestinal/Abdominal: States: nausea Genitourinary: States: no symptoms reported Musculoskeletal: States: other - Occasional pain in both legs. Skin: States: no symptoms reported Neurological: States: no symptoms reported Endocrine: States: no symptoms reported Hematologic/Lymphatic: States: no symptoms reported Past Medical History (General) - Patient Medical History Hx Seizures: No Hx Stroke: No Hx Dementia: No Hx Asthma: No Hx of COPD: No Hx Cardiac Disorders: No Hx Congestive Heart Failure: No Hx Pacemaker: No Hx Hypertension: Yes Hx Thyroid Disease: No Hx Diabetes: Yes Hx Gastroesophageal Reflux: Yes Hx Renal Disease: No Hx Cancer: No Hx of HIV: No Hx Hepatitis C: No Hx MRSA: No - Vaccination History Hx Tetanus, Diphtheria Vaccination: No Hx Influenza Vaccination: No Hx Pneumococcal Vaccination: No - Social History Hx Tobacco Use: No Hx Alcohol Use: No Hx Substance Use: No Hx Substance Use Treatment: No Hx Depression: No Hx Physical Abuse: No Hx Emotional Abuse: No - Female History Patient : No Family Medical History - Family History Mother Family History: No Known Living Status: Still Living Hx Family Hypertension: Yes Hx Family Diabetes: Yes Physical Exam - Physical Exam General Appearance: Alert, Comfortable Eye Exam: bilateral normal Ears, Nose, Throat: hearing grossly normal, normal ENT inspection Neck: non-tender, full range of motion Respiratory: other - Tender in the left upper anterior chest wall. Palpation reproduces the pain. 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 11/17/20 19:00 39-year-old female With intermittent pain in the left upper chest without associated symptoms suggesting Cardiac etiology or pulmonary embolism. Patient has normal EKG and chest x-ray, normal vital signs and exam is consistent with chest wall pain. - Results/Orders Results/Orders: Electrocardiogram, 81/min, normal sinus rhythm, normal tracing. Chest x-ray PA lateral normal films. Departure - Departure Clinical Impression: Chest wall pain Time of Disposition: 17:37 Disposition: Discharge to Home or Self Care Condition: Good Departure Forms: ED Discharge - Pt. Copy, Patient Portal Self Enrollment Instructions: Costochondritis (DC) Diet: resume usual diet Referrals: Maureen Shaw NP [Primary Care Provider] - 1-2 Weeks Prescriptions: Ibuprofen 600 mg PO QID PRN 7 Days #30 tab PRN Reason: Pain Home Medications: Ambulatory Orders Metformin HCl 500 mg PO BID 01/29/13 Glyburide 2.5 mg PO BID 01/31/15 Lisinopril 10 mg PO DAILY #30 tab 04/27/18 [place]/Poly/Hc Otic Susp [Cortisporin Otic Susp] 4 drop LEFT_EAR Q6H #10 days 02/09/19 Tramadol HCl 100 mg PO Q8H PRN #18 tab 02/09/19 Bifidobacterium Infantis [Align] 4 mg PO BID cap 05/11/20 Polyethylene Glycol 3350 [Miralax] 17 gm PO DAILY 20 Days #20 pckt 05/11/20 levoFLOXacin [Levaquin] 500 mg PO DAILY #14 tab 05/11/20 metroNIDAZOLE [Flagyl] 500 mg PO Q8H #42 tab 05/11/20 Magnesium Citrate 300 ml PO ONCE #1 bttl 05/28/20 Ibuprofen 600 mg PO QID PRN 7 Days #30 tab 11/17/20
[2020-11-17] MEDS ORDERED: IBUPROFEN 200 MG TAB PO ONE (17:08)
--- NOTE | 2020-11-17 17:34 | RAD ---
EXAM DESCRIPTION: Chest,2 Views CLINICAL HISTORY:39 years Female, Chest pain Comparison: May 26, 2017 FINDINGS: No focal lung consolidation. No pleural effusion. No pneumothorax. Cardiac and mediastinal silhouette is unremarkable. No acute osseous abnormality. Soft tissues are unremarkable. IMPRESSION: No acute findings. No focal lung consolidation. Electronically signed by: Pardeep Dove MD 11/17/2020 5:33 PM [facility] [employer]
[2020-11-17 18:11] VITALS: BP 109/73; TEMP 97.6; O2SAT 95
== END 2020-11-17 17:55 | disposition home or self-care (01) ==
LOC: ER 16:39
DX: R07.2 Precordial pain (principal); K21.9 Gastro-esophageal reflux disease without esophagitis; E11.9 Type 2 diabetes mellitus without complications; I10 Essential (primary) hypertension; Z79.899 Other long term (current) drug therapy; Z79.84 Long term (current) use of oral hypoglycemic drugs